=== PATIENT | male | born 1995 | race Two or more races ===

== ENCOUNTER 2022-09-25 14:17 | Emergency (ER) | payer SELFPAY ==
[~2022-09-25] VITALS: Ht 165.1 cm; Wt 65.3 kg
--- NOTE | 2022-09-25 14:35 | NUR ---
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
--- NOTE | 2022-09-25 14:40 | NUR ---
IV 20g RAC
[2022-09-25] MEDS ORDERED: NALOXONE PREFILLED SYRINGE 2 MG/2 ML SYRINGE ONE (14:51)
[2022-09-25] MEDS ORDERED: NALOXONE HCL 0.4 MG/ML AMPUL IV ONE (15:00)
[2022-09-25 15:20] LABS: BASOPHILS % (AUTO) 0.7 % (0.0-2.0); EOSINOPHILS % (AUTO) 1.6 % (0.0-6.0); HEMATOCRIT 48 % (39-51); HEMOGLOBIN 15.9 g/dL (13.5-17.5); LYMPHOCYTES # (AUTO) 1.6 K/uL (0.8-4.8); LYMPHOCYTES % (AUTO) 30.7 % (20.0-44.0); MEAN CORPUSCULAR HGB CONC 33 g/dl (31.0-36.0); MEAN CORPUSCULAR VOLUME 92 fL (80-96); MONOCYTES # (AUTO) 0.5 K/uL (0.1-1.30); MONOCYTES % (AUTO) 10.6 % (2.0-12.0); NEUTROPHILS # (AUTO) 2.9 K/uL (1.8-8.9); NEUTROPHILS % (AUTO) 56.4 % (43.0-81.0); PLATELET COUNT (AUTO) 226 K/uL (150-450); RED BLOOD CELL COUNT(AUTO) 5.24 MIL/uL (4.5-6.0); WHITE BLOOD COUNT (AUTO) 5.1 K/uL (4.3-11.0)
[2022-09-25 16:00] LABS: ALANINE AMINOTRANSFERASE 38 U/L (12-78); ALBUMIN 4.1 g/dL (3.4-5.0); ALCOHOL, BLOOD 32 mg/dL (0-0); ALKALINE PHOSPHATASE 59 U/L (46-116); ASPARTATE AMINOTRANSFERASE 31 U/L (15-37); BILIRUBIN,DIRECT 0.2 mg/dL (0.0-0.2); BILIRUBIN,TOTAL 0.7 mg/dL (0.2-1.0); CALCIUM, SERUM 8.7 mg/dL (8.5-10.1); CARBON DIOXIDE 27 mmol/L (21-32); CHLORIDE 101 mmol/L (98-107); CREATININE 1.1 mg/dL (0.6-1.3); GLUCOSE 144 mg/dL (74-106); POTASSIUM 3.2 mmol/L (3.5-5.1); SODIUM SERUM 139 mmol/L (136-145); TOTAL PROTEIN, SERUM 7.2 g/dL (6.4-8.2); UREA NITROGEN, BLOOD 13 mg/dL (7-18)
[2022-09-25 16:08] LABS: ACETAMINOPHEN 0 ug/ml (10-30)
--- NOTE | 2022-09-25 17:33 | NUR ---
pt is awake, verbally responsive, stable vitals sign. was offered meal tray but refused, only asking for water. requesting to be discharged. dr blackburn aware.
[2022-09-25] MEDS ORDERED: NALO1DIS2 IM (17:38)
--- NOTE | 2022-09-25 18:07 | NUR ---
Patient discharged to home in stable condition. Written and verbal after care instructions given. Patient verbalizes understanding of instruction.IV removed. Catheter intact and site benign. Pressure and 4x4 applied to site. No bleeding noted.
[2022-09-25 18:09] VITALS: BP 118/74
== END 2022-09-25 18:09 | disposition home or self-care (01) ==
LOC: ER 14:22 → EDBD 14:22 → ER 18:09
DX: T40.2X1A Poisoning by other opioids, accidental (unintentional), initial encounter (principal); R40.4 Transient alteration of awareness; Y92.410 Unspecified street and highway as the place of occurrence of the external cause
CPT/HCPCS: 99284; 96374; 71045; 85025; 80048; 80076; 36415; 80143; 80320; J2310; G0480